=== PATIENT | male | born 1985 | race African-American/Black ===

== ENCOUNTER 2017-01-29 23:18 | Emergency (ER) | payer OTHER ==
[~2017-01-29] VITALS: Ht 182.9 cm; Wt 99.8 kg
[2017-01-29] MEDS ORDERED: ALBUTEROL2.5 MG/3 M INH (23:26)
[2017-01-29] MEDS ORDERED: TYLENOL325 MG ORAL (23:51)
[2017-01-29] MEDS ORDERED: ZITHROMAX250 MG ORAL (23:51)
[2017-01-30] MEDS ORDERED: Metoclopramide 10mg/2ml Inj IM ONE
[2017-01-30 00:02] VITALS: BP 120/75
--- NOTE | 2017-01-30 00:58 | Emergency Room Report ---
History of Present Illness General Chief Complaint: Headache Source: Patient Present Illness HPI Patient is a 31-year-old male who presented after increased right-sided headache and jaw pain. Patient had recently been seen at [facility] after increased dental pain. He was noted to have previous history of dental issue to his right lower jaw. He denied any fever.Patient having some slight increased swelling. He reports being allergic to penicillin. He denies any shortness of breath or neck pain Allergies: Coded Allergies: ASPIRIN (Verified Allergy, Mild, Hives, 01/29/17) Patient History Past Medical History: see triage record Reviewed Nursing Documentation: PMH: Agreed, PSxH: Agreed Nursing Documentation-PMH Hx Asthma: Yes Review of Systems All Other Systems: negative except mentioned in HPI Physical Exam Vital Signs Date Time Temp Pulse Resp B/P (MAP) Pulse Ox O2 Delivery O2 Flow Rate FiO2 01/29/17 23:23 98.1 55 14 120/75 97 General Appearance: well appearing, no apparent distress, alert, GCS 15 Head: normocephalic, atraumatic ENT: hearing grossly normal, normal voice Neck: full range of motion, supple Respiratory: no respiratory distress, speaking full sentences Gastrointestinal: normal inspection, soft Musculoskeletal: no calf tenderness Neurologic: normal gait Psychiatric: mood/affect normal Skin: no rash Medical Decision Making Diagnostic Impression: Primary Impression: Pain due to dental caries ER Course Patient was ever dental pain. Differential diagnosis included but was not limited to trigeminal neuralgia, dental abscess, dry socket, osteomyelitis, nerve injury. The patient was noted to have a benign exam. The patient is advised to follow up with dentist in 1-2 days. Patient is advised to return if any worsening condition or if any changes in status that are concerning. Last Vital Signs Date Time Temp Pulse Resp B/P (MAP) Pulse Ox O2 Delivery O2 Flow Rate FiO2 01/30/17 00:02 98.1 14 120/75 97 01/29/17 23:23 55 Status: improved Disposition: HOME, SELF-CARE Condition: Stable Scripts Acetaminophen (Tylenol) 325 Mg Tablet 650 MG ORAL Q6H Y for Prn Pain/Headache/Temp > 101, #30 TAB 0 Refills Prov: Rajesh Blum 01/29/17 Azithromycin* (ZITHROMAX*) 250 Mg Tablet 250 MG ORAL DAILY, #6 TAB 0 Refills Take two tables once daily for 1 day, then one tablet once daily for 4 days. Prov: Rajesh Blum 01/29/17 Referrals: [facility]ERR[facility] (PCP) Patient Instructions: Dental Pain Rajesh Blum Jan 30, 2017 00:58
== END 2017-01-30 | disposition home or self-care (01) ==
LOC: EMR 23:39
DX: K02.9 Dental caries, unspecified (principal); R51 Headache; J45.909 Unspecified asthma, uncomplicated; Z88.6 Allergy status to analgesic agent
CPT/HCPCS: 96372; 99284; J2765